=== PATIENT | male | born 1940 | race Caucasian/White ===

== ENCOUNTER 2017-09-29 16:17 | Emergency (ER) | payer OTHER ==
[~2017-09-29] VITALS: Ht 177.8 cm; Wt 92.1 kg
[~2017-09-29 16:17] MED LIST: ASPIRIN81 M1 PO; CALCIUM & MAGNE1 CAP PO; COPAXONE 20M20 MG/ML; CRESTOR5 MG PO; LEVOTHYROXIN0.112 MG PO; LISINOPRIL20 MG PO; MASON NATURAL1200 MG PO; METOPROLOL SUC100 M1 PO; MODAFINIL200 MG PO; MULTIVITAMIN1 TAB PO; NORVASC 5MG TAB5 MG PO; PERCOCET 325 MG1 TA2 PO; PREDNISONE 20MG20 MG PO; SAW PALMETTO S450 MG PO
[2017-09-29 16:51] LABS: ABSOLUTE BASOPHIL COUNT 0 /CUMM (0.0-0.2); ABSOLUTE EOSINOPHIL COUNT 0.1 /CUMM (0.0-0.7); ABSOLUTE GRANULOCYTE CT 4.6 /CUMM (1.4-6.5); ABSOLUTE LYMPH COUNT 2.8 /CUMM (1.2-3.4); ABSOLUTE MONOCYTE COUNT 0.7 /CUMM (0.10-0.60); BASOPHIL % 0.6 % (0.0-2.0); EOSINOPHIL % 1.1 % (0-5); GRANULOCYTE % 55.5 % (42.2-75.2); HEMATOCRIT 45.1 % (42-52); MEAN CORPUSCULAR HGB 27.6 PG (27.0-31.0); MEAN CORPUSCULAR HGB CONC 32.6 G/DL (33.0-37.0); MEAN CORPUSCULAR VOLUME 84.6 FL (80.0-94.0); MEAN PLATELET VOLUME 8.4 FL (7.4-10.4); PLATELET COUNT 219 /CUMM (130-400); RBC DISTRIBUTION WIDTH 14.3 % (11.5-14.5); RED BLOOD CELL CT 5.32 /CUMM (4.70-6.10); WHITE BLOOD CELL COUNT 8.2 /CUMM (4.8-10.8)
--- NOTE | 2017-09-29 18:55 | RADIOLOGY REPORT ---
EXAMINATION: XR CHEST CLINICAL INFORMATION: SOB. COMPARISON: None TECHNIQUE: 2 views of the chest were obtained. FINDINGS: Both lungs are hyperinflated but clear. The heart size and pulmonary vascularity is normal. There is moderate spondylosis dorsal spine. No lytic process seen. There is mild dextroscoliosis dorsal spine. There are multiple radiopaque densities overlying the left heart border likely artifact. IMPRESSION: Hyperinflated lungs without any acute process. No gross bony abnormality. There are multiple round calcified densities overlying the left cardiac border likely artifact.
--- NOTE | 2017-09-29 21:10 | ED DYSPNEA/ASTHMA COMPLAINT ---
History of Present Illness General Chief Complaint: Dyspnea (COPD, CHF, Other) Stated Complaint: SOB Source: patient, family, old records Exam Limitations: no limitations Vital Signs & Intake/Output Vital Signs & Intake/Output Vital Signs Date Time Temp Pulse Resp B/P B/P Pulse O2 O2 Flow FiO2 Mean Ox Delivery Rate 09/29 2016 84 19 126/64 99 Room Air 09/29 1620 98.2 79 18 146/82 98 Room Air Allergies Coded Allergies: MDX - Penicillin V (Severe, PUFFED UP AND SWELLED 07/21/15) MDX - Caffeine (CAFFEINE) (UNKNOWN 07/21/15) MDX - Clindamycin (CLINDAMYCIN) (UNKNOWN 07/21/15) Uncoded Allergies: CATS (02/25/15) Reconcile Medications Amlodipine (Norvasc 5MG Tab) 5 MG TAB 1 TAB PO DAILY HEART (Reported) Aspirin 81 MG CTB 1 TAB PO DAILY HEART HEALTH (Reported) Calcium/Magnesium (Calcium & Magnesium Chelate 180 MG-90 MG) 1 CAP CAP 1 CAP PO DAILY SUPPLEMENT (Reported) Glatiramer Acetate (Copaxone) 20 MG/ML SYR MS (Reported) Levothyroxine Sodium (Levothyroxine) 0.112 MG TAB 0.112 MG PO DAILY AC THYROID (Reported) Lisinopril 20 MG TAB 1 TAB PO DAILY HEART (Reported) Metoprolol Succinate (Metoprolol Succinate XL) [address] 1 TAB PO DAILY HEART (Reported) Modafinil 200 MG TAB 0.5 TAB PO DAILY UNKNOWN (Reported) Multivitamin (Multiple Vitamins) 1 TAB TAB 1 TAB PO DAILY SUPPLEMENT ( Reported) OMEGA-3 FATTY ACIDS/FISH OIL (Fish Oil 1,200 MG Softgel) 1,200 MG SGL 1 CAP PO DAILY SUPPLEMENT (Reported) OXYCODONE HCL/ACETAMINOPHEN (Percocet 5-325 MG Tablet) 325 MG/5 MG TAB 1 TAB PO Q4-6 PRN PRN PAIN Oxymetazoline HCl (Afrin) 0.05 % SPRAY 2 SPRAY NASB BID sinusitis Prednisone 20 MG TAB 0 PO DAILY ALLERGIC REACTION DAY 1: 3 TABS PO QD DAY 2: 2 TABS PO QD DAY 3: 1 TAB PO QD Rosuvastatin Calcium (Crestor) 5 MG TAB 1 TAB PO 3XW CHOLESTEROL (Reported) Saw [place] (Saw [place] Standardized) 450 MG CAP 1 CAP PO DAILY SUPPPLEMENT (Reported) Sulfamethoxazole/Trimethoprim (Bactrim Ds Tablet) 800 MG-160 MG TABLET 1 TAB PO BID bronchitis sinusitis Core Measure Meds Pre-Hospital aspirin Triage Note: 77 YO MALE TO TRIAGE SENT TO ER FROM URGENT CARE FOR EVAL OF SOB WITH PRODUCTIVE COUGH. STATES HE WAS DX WITH BRONCHITIS AND RECENTLY FINISHED ANTIBIOTICS. STATES HIS BREATHING HASNT GOTTEN ANY BETTER. STATES BREATHING IS WORSE WITH LAYING FLAT AND EXERTION. DENIES CHEST PAIN. DENIES ABD PAIN/NVD. Triage Nurses Notes Reviewed? yes Onset: 6 weeks prior to admission Duration: week(s):, continues in ED, waxing and waning Timing: recent history Severity: moderate Activities at Onset: none Prior Episodes/Possible Cause: illness exposure Modifying Factors: Worsens With: movement. Associated Symptoms: cough, wheezing HPI: 6 weeks prior to admission patient complains of nose congestion productive cough malaise wheezing and shortness of breath with exertion nocturnal orthopnea frontal headache. One week prior to admission he was prescribed Tamiflu Medrol Dosepak and Levaquin for bronchitis. He denies fever chills nausea vomiting diarrhea abdominal pain chest pain dysuria rash bleeding. Past History Travel History Traveled to [place] past 21 day No Medical History Any Pertinent Medical History? 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 No Review of Systems Review of Systems Constitutional: Reports: see HPI, malaise. EENTM: Reports: see HPI, nasal congestion. Respiratory: Reports: see HPI, cough, short of breath, sputum production, wheezing. Cardiovascular: Reports: no symptoms. GI: Reports: no symptoms. Genitourinary: Reports: no symptoms. Musculoskeletal: Reports: no symptoms. Skin: Reports: no symptoms. Neurological/Psychological: Reports: no symptoms. Hematologic/Endocrine: Reports: no symptoms. Immunologic/Allergic: Reports: no symptoms. All Other Systems: Reviewed and Negative Physical Exam Physical Exam General Appearance: well developed/nourished, alert, awake, anxious, mild distress Head: atraumatic, normal appearance Eyes: Bilateral: normal appearance, PERRL, EOMI. Ears, Nose, Throat: normal pharynx, hearing grossly normal, sinus pain/drainage, nasal congestion, frontal sinus percussion tenderness Neck: normal inspection, supple, full range of motion, no midline tenderness Respiratory: chest non-tender, no respiratory distress, quiet respiration, wheezing Cardiovascular: regular rate/rhythm, normal peripheral pulses, norml femoral pulses equa Peripheral Pulses: 4+ carotid (R), 4+ carotid (L) Gastrointestinal: normal bowel sounds, soft, non-tender, no organomegaly Extremities: normal inspection, normal capillary refill, normal range of motion, no edema, no ligament instability Neurologic/Psych: no motor/sensory deficits, awake, alert, oriented x 3, normal mood/affect, maitre d II-XII nml as tested Skin: intact, normal color, warm/dry Lymphatic: no anterior cervical eulalio Core Measures ACS in differential dx? Yes No ASA d/t Medical Contraindication CVA/TIA Diagnosis No Sepsis Present: No Sepsis Focused Exam Completed? No Progress Differential Diagnosis: asthma, bronchitis, CHF, COPD, pulmonary embolism, pneumonia Plan of Care: Orders Procedure Date/time Status Add-on Test (ER Only) 09/29 2013 Active Add-on Test (ER Only) 09/29 182 Active Add-on Test (ER Only) 09/29 1739 Active TROPONIN LEVEL 09/29 1625 Complete D-DIMER 09/29 1625 Complete B-TYPE NATRIURETIC PEP (BNP) 09/29 162 Complete COMPREHENSIVE METABOLIC PANEL 09/29 162 Complete CBC WITHOUT DIFFERENTIAL 09/29 1623 Complete EKG 09/29 1623 Active Laboratory Tests 09/29/17 1625: Anion Gap 13, Estimated GFR > 60, BUN/Creatinine Ratio 23.3, Glucose 101 H, Calcium 9.3, Total Bilirubin 0.5, AST 22, ALT 47, Alkaline Phosphatase 64, Troponin I < 0.01, [id number] Pept 65.6, Total Protein 6.8, Albumin 4.0, Globulin 2.8, Albumin/Globulin Ratio 1.4, D-Dimer High Sensitivty < 200, CBC w Diff NO MAN DIFF REQ, RBC 5.32, MCV 84.6, MCH 27.6, MCHC 32.6 L, RDW 14.3, MPV 8.4, Gran % 55.5, Lymphocytes % 34.7, Monocytes % 8.1, Eosinophils % 1.1, Basophils % 0.6, Absolute Granulocytes 4.6, Absolute Lymphocytes 2.8, Absolute Monocytes 0.7 H, Absolute Eosinophils 0.1, Absolute Basophils 0 Diagnostic Imaging: Viewed by Me: Radiology Read. Discussed w/RAD: Radiology Read. CXR Impression: no acute abnormality, no infiltrates, normal size heart, normal mediastinum Initial ED EKG: normal axis, normal intervals, normal p-waves, normal QRS complex, normal sinus rhythm, no ST T wave changes Prior EKG: unchanged Rhythm Strip: normal sinus rhythm Departure Departure Time of Disposition: 2127 Disposition: HOME OR SELF CARE Condition: Stable Clinical Impression Primary Impression: Sinusitis Qualifiers: Sinusitis location: unspecified location Chronicity: subacute Qualified Code: J01.90 - Acute sinusitis, unspecified Secondary Impressions: Bronchitis Referrals: Erin REYNOLDS,Carter Cee Call for pulmonary follow up Catalina Tran MD (PCP/Family) Jann REYNOLDS,Jovanni Dickens MD Call for ENT follow up Additional Instructions: Use your inhaler 2 puffs every 4-6 hours Departure Forms: Customer Survey General Discharge Information Prescriptions: Current Visit Scripts Sulfamethoxazole/Trimethoprim (Bactrim Ds Tablet) 1 TAB PO BID #28 TAB Oxymetazoline HCl (Afrin) 2 SPRAY NASB BID #30 ML Critical Care Note Critical Care Note Critical Care Time: non-applicable
[2017-09-29] MEDS ORDERED: BACTRIM DS TAB1 EACH PO (21:30)
[2017-09-29] MEDS ORDERED: AFRIN30 ML NASB (21:30)
[2017-09-29 21:52] VITALS: BP 136/74
== END 2017-09-29 21:53 ==
LOC: ERH 16:17
PROVIDERS: Emergency Medicine
DX: J32.9 Chronic sinusitis, unspecified (principal); J40 Bronchitis, not specified as acute or chronic
CPT/HCPCS: 71046; 93005; 93010